=== PATIENT | male | born 1965 | race Caucasian/White ===

== ENCOUNTER 2022-04-10 17:49 | Outpatient (REF) | payer MEDICAID, SELFPAY ==
[2022-04-10 17:14] LABS: ALT 105 U/L (16-63); AST 67 U/L (15-37); Albumin 3.9 g/dL (3.4-5.0); Alkaline Phosphatase 125 U/L (46-116); Anion Gap 8.3 mmol/L (3-11); BUN 16 mg/dL (7-18); Bilirubin, Total 0.7 mg/dL (0.2-1.0); CO2 29.7 mmol/L (21.0-32.0); CREATININE 0.8 mg/dL (0.70-1.30); Calcium 9.5 mg/dL (8.5-10.1); Calculated LDL 144 mg/dL (<100); Chloride 101 mmol/L (98-107); Cholesterol 221 mg/dL (<200); Estimated GFR 103.87 (mL/min/1.73m2); Glucose 95 mg/dL (74-106); HDL Cholesterol 54 mg/dL (40-60); Hemoglobin A1C 5.3 % (<5.7); Potassium 5.2 mmol/L (3.5-5.1); Sodium 139 mmol/L (136-145); Total Protein 7.9 g/dL (6.4-8.2); Triglyceride 117 mg/dL (<150)
== END 2022-04-10 17:50 | disposition home or self-care (01) ==
LOC: NCHCN 17:49
PROVIDERS: PCP Specialist/Technologist Athletic Trainer; Visit Provider Nurse Practitioner Family
DX: R19.5 Other fecal abnormalities (principal); Z00.00 Encounter for general adult medical examination without abnormal findings
CPT/HCPCS: 80053; 80061; 83036

== ENCOUNTER 2022-06-05 17:02 | Outpatient (REF) | payer MEDICAID, SELFPAY ==
[2022-06-05 17:44] LABS: Calculated LDL 71 mg/dL (<100); Cholesterol 159 mg/dL (<200); HDL Cholesterol 72 mg/dL (40-60); Triglyceride 84 mg/dL (<150)
== END 2022-06-05 17:03 | disposition home or self-care (01) ==
LOC: NCHCN 17:02
PROVIDERS: PCP Specialist/Technologist Athletic Trainer; Visit Provider Nurse Practitioner Family
DX: Z13.220 Encounter for screening for lipoid disorders (principal); Z00.00 Encounter for general adult medical examination without abnormal findings
CPT/HCPCS: 80061

== ENCOUNTER 2022-06-23 13:19 | Outpatient (REF) | payer MEDICAID, SELFPAY ==
[2022-06-23 16:26] LABS: HCT 55.4 % (40.0-50.0); HGB 18.8 g/dL (13.5-17.5); MCH 31.5 pg (27.0-33.0); MCHC 33.9 % (32.0-36.0); MCV 93 fL (80-95); MPV 11.3 fL (8.0-11.0); Platelet Count 225 10^3/uL (130-400); RBC 5.96 10^6/uL (4.36-5.78); RDW 12.7 % (11.8-14.1); RDW-SD 43.8 fL; WBC 9.62 10^3/uL (4.4-10.8)
[2022-06-23 16:37] LABS: Prothrombin Time 9.9 sec (9.3-11.0)
== END 2022-06-23 13:20 | disposition home or self-care (01) ==
LOC: NCHCN 13:19
PROVIDERS: PCP Specialist/Technologist Athletic Trainer; Visit Provider Nurse Practitioner Family
DX: K75.81 Nonalcoholic steatohepatitis (NASH) (principal)
CPT/HCPCS: 85027; 85610

== ENCOUNTER 2023-07-09 18:15 | Outpatient (REF) | payer MEDICAID, SELFPAY ==
[2023-07-09 19:39] LABS: Abs Immature Grans 0.06 10^3/uL (0.0-0.06); Absolute Basophil Count 0.08 10^3/uL (0.0-0.2); Absolute Eosinophil Count 0.14 10^3/uL (0.0-0.7); Absolute Lymphocyte Count 1.69 10^3/uL (1.2-3.4); Absolute Neutrophil Count 6.51 10^3/uL (1.2-6.7); Basophils % 0.9; Eosinophils % 1.5; HGB 17.4 g/dL (13.5-17.5); Immature Grans % 0.6; Lymphocytes % 18.2; MCH 30.5 pg (27.0-33.0); MCHC 32.2 % (32.0-36.0); MCV 95 fL (80-95); MPV 10.4 fL (8.0-11.0); Monocytes % 8.6; Neutrophils % 70.2; Platelet Count 315 10^3/uL (130-400); RBC 5.71 10^6/uL (4.36-5.78); RDW 12.9 % (11.8-14.1); RDW-SD 45.1 fL; WBC 9.28 10^3/uL (4.4-10.8)
[2023-07-09 19:47] LABS: Calculated LDL 122 mg/dL (<100); Cholesterol 217 mg/dL (<200); HDL Cholesterol 66 mg/dL (40-60); Triglyceride 147 mg/dL (<150)
[2023-07-09 19:49] LABS: Prothrombin Time 9.7 sec (9.1-11.1)
[2023-07-10 19:01] LABS: Hepatitis C Ab w Rflx HCV PCR Negative (Negative)
== END 2023-07-09 18:16 | disposition home or self-care (01) ==
LOC: NCHCN 18:15
PROVIDERS: PCP Specialist/Technologist Athletic Trainer; Visit Provider Nurse Practitioner Family
DX: K76.0 Fatty (change of) liver, not elsewhere classified (principal); Z13.220 Encounter for screening for lipoid disorders; Z11.59 Encounter for screening for other viral diseases; Z00.00 Encounter for general adult medical examination without abnormal findings
CPT/HCPCS: 80061; 86803; 85025; 85610

== ENCOUNTER → 2023-07-31 01:14 | Outpatient (CLI) | payer MEDICAID, SELFPAY ==
--- NOTE | 2023-07-31 | DI.CTLCSR_ITS ---
Exam(s) CT CHEST LUNG CANCER SCREEN EXAM: CT CHEST LUNG CANCER SCREEN CLINICAL HISTORY: NICOTINE DEPENDENCE, F17.200, SCREENING FOR LUNG CANCER. TECHNIQUE: Imaging Protocol: Low Dose Technique CONTRAST MATERIAL: None COMPARISON: CT ABD PELVIS WITH CONTRAST from 12/23/2017 CR PORTABLE AP CHEST, POST LINE from 12/26/2017 CT ABD PELVIS WITH CONTRAST from 01/01/2018 FINDINGS: CHEST: LUNGS: There is a 4 millimeter noncalcified nodule in the left lower lobe (series 2/image 77). No ot her significant focal left lung findings. No focal right lung findings. There are no confluent infi ltrates. No pleural effusions. MEDIASTINUM: There is no obvious hilar nor mediastinal adenopathy. CARDIAC: Heart size is normal. There is no pericardial effusion.Caliber of the thoracic aorta is wit hin normal limits. OTHER: OSSEOUS: No significant osseous lesions.No fractures. However, there is diffuse calcification of the anterior longitudinal ligament of the spine as well as other spine findings consistent with probable ankylosing spondylitis. IMPRESSION: 1. Solitary 4 millimeter left lower lobe nodule. No other focal lung findings and no pleural effusio ns nor intrathoracic adenopathy. 2. Osseous findings consistent with ankylosing spondylitis. 3. Lung RADS Cat 3 - Probably Benign: Probably benign finding(s) - short term follow-up suggested; in clude nodules with a low likelihood of becoming a clinically active cancer. Recommend repeat CT scan in 6 months. Lung-RADS 1.0 CATEGORIES: Category 0 - Prior chest CT exam(s) being located for comparison. Category 1 - Annual screening in 12 months. No nodules or definitely benign nodules. Category 2 - Annual screening in 12 months. Benign appearance. Nodules with low likelihood of becomin g active cancer. Category 3 - 6-month follow-up. Probably benign. Short-term follow-up suggested. Nodules with low lik elihood of becoming active cancer. Category 4A - 3-month follow-up and CT/PET if >8 mm in size. Suspicious finding. Findings which requi re additional testing. Category 4B - Findings which require additional testing and tissue sampling. Category 4X - Category 3 or 4 nodules with additional features or imaging findings that increases the suspicion of malignancy. Modifier S- Potentially clinically significant findings (non lung cancer) RADIATION DOSE DELIVERED: 105.32mGy.cm Total DLP DATA REPOSITORY: All CT scans at this facility are submitted to the National Radiology Data Registry (NRDR) Dose Index Registry (DIR) with the [employer] ([employer]). RADIATION OPTIMIZATION: All CT scans at this facility use at least one of these dose optimization te chniques: automated exposure control; mA and/or kV adjustment per patient size (includes targeted exa ms where dose is matched to clinical indication); or iterative reconstruction.
== END ==
PROVIDERS: PCP Specialist/Technologist Athletic Trainer; Visit Provider Nurse Practitioner Family
DX: Z12.2 Encounter for screening for malignant neoplasm of respiratory organs (principal); F17.210 Nicotine dependence, cigarettes, uncomplicated; R91.1 Solitary pulmonary nodule
CPT/HCPCS: 71271

== ENCOUNTER 2023-08-02 19:25 | Outpatient (REF) | payer MEDICAID, SELFPAY ==
[2023-08-02 19:35] LABS: ALT 25 U/L (16-63); AST 23 U/L (15-37); Albumin 3.8 g/dL (3.4-5.0); Alkaline Phosphatase 103 U/L (46-116); Anion Gap 8.8 mmol/L (3-11); BUN 21 mg/dL (7-18); Bilirubin, Total 0.6 mg/dL (0.2-1.0); CO2 27.2 mmol/L (21.0-32.0); CREATININE 0.7 mg/dL (0.70-1.30); Calcium 9.6 mg/dL (8.5-10.1); Chloride 102 mmol/L (98-107); Estimated GFR 107.47 (mL/min/1.73m2); Glucose 90 mg/dL (74-106); Potassium 4.2 mmol/L (3.5-5.1); Sodium 138 mmol/L (136-145); Total Protein 8.1 g/dL (6.4-8.2)
[2023-08-02 19:39] LABS: Hemoglobin A1C 5.3 % (<5.7)
== END 2023-08-02 19:26 | disposition home or self-care (01) ==
LOC: NCHCN 19:25
PROVIDERS: PCP Specialist/Technologist Athletic Trainer; Visit Provider Nurse Practitioner Family
DX: E78.5 Hyperlipidemia, unspecified (principal); R79.89 Other specified abnormal findings of blood chemistry; Z13.1 Encounter for screening for diabetes mellitus
CPT/HCPCS: 80053; 83036